=== PATIENT | male | born 1990 | race Asian ===

== ENCOUNTER 2018-02-16 08:10 | Emergency (ER) | payer MEDICAID ==
[~2018-02-16] VITALS: Ht 162.6 cm; Wt 65.0 kg
[~2018-02-16 08:10] MED LIST: PRED20TA PO; SUMA100T PO
[2018-02-16 08:17] VITALS: BP 122/79
[2018-02-16] MEDS ORDERED: triamcinolone acetonide 40mg/ml inj IM ONE (08:40)
== END 2018-02-16 10:09 | disposition home or self-care (01) ==
LOC: ER 08:11
DX: L25.5 Unspecified contact dermatitis due to plants, except food (principal); G43.909 Migraine, unspecified, not intractable, without status migrainosus; Z79.899 Other long term (current) drug therapy
CPT/HCPCS: 96372; 99283; J3301

== ENCOUNTER 2019-05-05 09:10 | Emergency (ER) | payer MEDICAID ==
[~2019-05-05] VITALS: Ht 162.6 cm; Wt 61.4 kg
[2019-05-05 09:13] VITALS: BP 132/84
[2019-05-05] MEDS ORDERED: TRAM50TA2 PO (09:38)
== END 2019-05-05 10:52 | disposition home or self-care (01) ==
LOC: ER 09:10
DX: S42.491A Other displaced fracture of lower end of right humerus, initial encounter for closed fracture (principal); S52.121A Displaced fracture of head of right radius, initial encounter for closed fracture; G43.909 Migraine, unspecified, not intractable, without status migrainosus; F10.99 Alcohol use, unspecified with unspecified alcohol-induced disorder; Z79.899 Other long term (current) drug therapy; X50.0XXA Overexertion from strenuous movement or load, initial encounter; Y93.89 Activity, other specified; Y92.89 Other specified places as the place of occurrence of the external cause; Y99.8 Other external cause status; Y90.9 Presence of alcohol in blood, level not specified
CPT/HCPCS: 29105; 73080; 99283